=== PATIENT | male | born 1995 | race Caucasian/White ===

== ENCOUNTER 2020-02-19 16:19 | Inpatient (IN) | payer MEDICAID ==
[~2020-02-19] VITALS: Ht 198.1 cm; Wt 120.3 kg
[2020-02-19 17:45] VITALS: BP 129/76
[2020-02-19] MEDS ORDERED: QUEtiapine FUMARATE 100 MG TABLET PO PRN (18:15)
[2020-02-19] MEDS: LORazepam 2 MG TABLET PO PRN (19:10)
[2020-02-19 20:00] VITALS: BP 139/84
[2020-02-19] MEDS: QUEtiapine FUMARATE 200 MG TABLET PO SCH (20:22)
[2020-02-19] MEDS: MIRTAZAPINE 15 MG TABLET PO SCH (20:22)
[2020-02-20] VITALS: BP 132/80
[2020-02-20 02:50] VITALS: BP 142/88
[2020-02-20] MEDS: LORazepam 2 MG TABLET PO PRN ×2 (02:58→08:28)
[2020-02-20 08:25] LABS: BASOPHILS % (AUTO) 0.8 % (0.0-2.0); EOSINOPHILS % (AUTO) 2.3 % (1.0-6.0); HEMATOCRIT 44.7 % (41-53); LYMPHOCYTES # (AUTO) 2.2 K/uL (1.0-4.8); LYMPHOCYTES % (AUTO) 28.5 % (22.0-44.0); MEAN CORPUSCULAR HEMOGLOBIN 28.4 pg (26.0-34.0); MEAN CORPUSCULAR HGB CONC 33.5 G/dL (31.0-37.0); MEAN CORPUSCULAR VOLUME 85 fL (80-100); MONOCYTES # (AUTO) 0.6 K/uL (0.1-1.0); MONOCYTES % (AUTO) 8.2 % (2.0-9.0); NEUTROPHILS # (AUTO) 4.6 K/uL (1.8-7.7); NEUTROPHILS % (AUTO) 60.2 % (40.0-70.0); PLATELET COUNT (AUTO) 197 K/uL (150-450); RED BLOOD CELL COUNT(AUTO) 5.26 MIL/uL (4.50-5.90); RED CELL DISTRIBUTION WIDTH 13.3 % (11.5-14.5)
[2020-02-20] MEDS: ESCITALOPRAM OXALATE 10 MG TABLET PO SCH (08:28)
[2020-02-20 08:44] LABS: HEMOGLOBIN A1C 5.2 % (3.8-5.6)
[2020-02-20 09:00] LABS: ALANINE AMINOTRANSFERASE 21 U/L (12-78); ALBUMIN 4.2 g/dL (3.4-5.0); ALKALINE PHOSPHATASE 79 U/L (46-116); ANION GAP 7 mmol/L (8-16); ASPARTATE AMINOTRANSFERASE 15 U/L (15-37); CALCIUM, TOTAL 9.3 mg/dL (8.8-10.5); CARBON DIOXIDE 30 mmol/L (22-29); CHLORIDE 105 mmol/L (98-107); CHOL/HDL RATIO 2.5 (4.2-7.3); CHOLESTEROL 124 mg/dL (131-200); CREATININE 1.15 mg/dL (0.60-1.30); FREE T4 (FREE THYROXINE) 1.04 ng/dL (0.76-1.46); GLOMERULAR FILTR. RATE CALC > 60 mL/min (>60); GLUCOSE,RANDOM 89 mg/dL (70-110); HDL CHOLESTEROL 50 mg/dL (40-60); LDL CHOL (CALC.) 63 mg/dL (0-130); SODIUM SERUM 142 mmol/L (136-145); THYROID STIMULATING HORMONE 3.18 uIU/mL (0.36-3.74); TOTAL PROTEIN, SERUM 7.4 g/dL (6.4-8.2); TRIGLYCERIDES 53 mg/dL (15-150); UREA NITROGEN, BLOOD 17 mg/dL (7-18)
[2020-02-20 09:07] LABS: AMPHET/METH SCREEN,URINE NEGATIVE (NEGATIVE); BARBITURATE SCREEN, URINE NEGATIVE (NEGATIVE); BENZODIAZEPINES SCREEN,URINE NEGATIVE (NEGATIVE); CANNABINOID SCREEN,URINE NEGATIVE (NEGATIVE); COCAINE SCREEN,URINE NEGATIVE (NEGATIVE); METHADONE SCREEN, URINE NEGATIVE (NEGATIVE); OPIATE SCREEN,URINE NEGATIVE (NEGATIVE)
[2020-02-20 09:18] LABS: APPEARANCE,URINE CLEAR (CLEAR); BILIRUBIN,URINE NEGATIVE (NEGATIVE); GLUCOSE, URINE (UA) NEGATIVE (NEGATIVE); KETONES,URINE NEGATIVE (NEGATIVE); LEUKOCYTE ESTERASE ,URINE NEGATIVE (NEGATIVE); NITRATE,URINE NEGATIVE (NEGATIVE); OCCULT BLOOD,URINE NEGATIVE (NEGATIVE); PROTEIN,URINE NEGATIVE (NEGATIVE); UROBILINOGEN,URINE 0.2 mg/dL (<=1.0)
[2020-02-20 09:39] LABS: PHENCYCLIDINE SCREEN,URINE NEGATIVE (NEGATIVE)
[2020-02-20 09:48] VITALS: BP 129/83
[2020-02-20] MEDS ORDERED: PETROLATUM,WHITE 28 GM JELLY TP PRN (10:45)
[2020-02-20] MEDS ORDERED: ACETAMINOPHEN 325 MG TABLET PO PRN (10:45)
[2020-02-20] MEDS ORDERED: MAG HYDROX/AL HYDROX/SIMETH ES 30 ML SUSPENSION UDCUP PO PRN (10:45)
[2020-02-20] MEDS ORDERED: ALBUTEROL SULFATE HFA 90 MCG/PUFF 8 GM INHALER IH PRN (10:45)
[2020-02-20] MEDS ORDERED: IBUPROFEN 400 MG TABLET PO PRN (10:45)
[2020-02-20] MEDS ORDERED: ONDANSETRON HCL 4 MG TABLET PO PRN (10:45)
[2020-02-20] MEDS ORDERED: GuaiFENesin/D-METHORPHAN [SUGAR-FREE] 200-20MG/10 ML SYRUP UDCUP PO PRN (10:45)
[2020-02-20] MEDS ORDERED: CloNIDine HCL 0.1 MG TABLET PO PRN (10:45)
[2020-02-20] MEDS ORDERED: LOPERAMIDE HCL 2 MG CAPSULE PO PRN (10:45)
[2020-02-20] MEDS ORDERED: MAGNESIUM HYDROXIDE SUSPENSION 30 ML UDCUP PO PRN (10:45)
[2020-02-20] MEDS ORDERED: DOCUSATE SODIUM 100 MG CAPSULE PO PRN (10:45)
[2020-02-20] MEDS ORDERED: NICOTINE 14 MG/24 HOUR PATCH TD PRN (10:45)
[2020-02-20 16:08] VITALS: BP 133/86
[2020-02-20] MEDS: QUEtiapine FUMARATE 200 MG TABLET PO SCH (20:11)
[2020-02-20] MEDS: MIRTAZAPINE 15 MG TABLET PO SCH (20:11)
[2020-02-20] MEDS: TraZODone HCL 50 MG TABLET PO SCH (20:11)
[2020-02-21] MEDS: LORazepam 2 MG TABLET PO PRN (01:08)
[2020-02-21 01:39] VITALS: BP 116/79
[2020-02-21] MEDS: ESCITALOPRAM OXALATE 10 MG TABLET PO SCH (08:48)
[2020-02-21 09:25] VITALS: BP 119/71
[2020-02-21 16:15] VITALS: BP 122/79
[2020-02-21] MEDS: MIRTAZAPINE 15 MG TABLET PO SCH (20:37)
[2020-02-21] MEDS: QUEtiapine FUMARATE 200 MG TABLET PO SCH (20:37)
[2020-02-21] MEDS: TraZODone HCL 50 MG TABLET PO SCH (20:37)
[2020-02-22 01:09] VITALS: BP 109/62
[2020-02-22] MEDS: LORazepam 2 MG TABLET PO PRN ×4 (01:17→16:58)
[2020-02-22 06:00] VITALS: BP 131/82
[2020-02-22 08:39] VITALS: BP 134/61
[2020-02-22] MEDS: ESCITALOPRAM OXALATE 10 MG TABLET PO SCH (08:47)
[2020-02-22 12:00] VITALS: BP 129/69
[2020-02-22 16:12] VITALS: BP 118/72
[2020-02-22] MEDS: TraZODone HCL 50 MG TABLET PO SCH (20:23)
[2020-02-22] MEDS: MIRTAZAPINE 15 MG TABLET PO SCH (20:23)
[2020-02-22] MEDS: QUEtiapine FUMARATE 200 MG TABLET PO SCH (20:23)
[2020-02-23 06:24] VITALS: BP 120/70
[2020-02-23] MEDS: LORazepam 2 MG TABLET PO PRN ×2 (07:12→17:41)
[2020-02-23 08:32] VITALS: BP 119/71
[2020-02-23] MEDS: ESCITALOPRAM OXALATE 10 MG TABLET PO SCH (08:37)
[2020-02-23 16:20] VITALS: BP 117/69
[2020-02-23] MEDS: MIRTAZAPINE 15 MG TABLET PO SCH (20:34)
[2020-02-23] MEDS: TraZODone HCL 50 MG TABLET PO SCH (20:34)
[2020-02-23] MEDS: QUEtiapine FUMARATE 200 MG TABLET PO SCH (20:34)
[2020-02-24 00:56] VITALS: BP 118/62
[2020-02-24 08:11] VITALS: BP 116/63
[2020-02-24] MEDS: ESCITALOPRAM OXALATE 10 MG TABLET PO SCH (08:36)
[2020-02-24] MEDS: LORazepam 2 MG TABLET PO PRN ×2 (13:56→19:04)
[2020-02-24 16:12] VITALS: BP 133/74
[2020-02-24] MEDS: QUEtiapine FUMARATE 200 MG TABLET PO SCH (20:36)
[2020-02-24] MEDS: TraZODone HCL 50 MG TABLET PO SCH (20:36)
[2020-02-24] MEDS: MIRTAZAPINE 15 MG TABLET PO SCH (20:37)
[2020-02-25 02:41] VITALS: BP 113/61
[2020-02-25 08:19] VITALS: BP 120/84
[2020-02-25] MEDS: ESCITALOPRAM OXALATE 10 MG TABLET PO SCH (08:48)
[2020-02-25] MEDS: LORazepam 2 MG TABLET PO PRN (10:20)
[2020-02-25 16:30] VITALS: BP 141/67
[2020-02-25] MEDS: TraZODone HCL 50 MG TABLET PO SCH (20:37)
[2020-02-25] MEDS: MIRTAZAPINE 15 MG TABLET PO SCH (20:37)
[2020-02-25] MEDS: QUEtiapine FUMARATE 200 MG TABLET PO SCH (20:37)
[2020-02-26 06:13] VITALS: BP 118/74
[2020-02-26 08:15] VITALS: BP 112/72
[2020-02-26] MEDS: ESCITALOPRAM OXALATE 10 MG TABLET PO SCH (08:19)
[2020-02-26] MEDS: LORazepam 2 MG TABLET PO PRN ×2 (11:56→17:40)
[2020-02-26 16:05] VITALS: BP 121/75
[2020-02-26] MEDS: TraZODone HCL 50 MG TABLET PO SCH (20:06)
[2020-02-26] MEDS: QUEtiapine FUMARATE 200 MG TABLET PO SCH (20:06)
[2020-02-26] MEDS: MIRTAZAPINE 30 MG TABLET PO SCH (20:06)
[2020-02-27 01:26] VITALS: BP 120/74
[2020-02-27] MEDS: LORazepam 2 MG TABLET PO PRN ×2 (05:16→21:08)
[2020-02-27] MEDS: ESCITALOPRAM OXALATE 10 MG TABLET PO SCH (09:31)
[2020-02-27 10:00] VITALS: BP 103/59
[2020-02-27] MEDS ORDERED: ESCITALOPRAM OXALATE 10 MG TABLET PO ONE (13:00)
[2020-02-27 16:54] VITALS: BP 130/72
[2020-02-27] MEDS: TraZODone HCL 50 MG TABLET PO SCH (20:02)
[2020-02-27] MEDS: MIRTAZAPINE 30 MG TABLET PO SCH (20:02)
[2020-02-27] MEDS: QUEtiapine FUMARATE 200 MG TABLET PO SCH (20:02)
[2020-02-28 03:06] VITALS: BP 122/68
[2020-02-28] MEDS: LORazepam 2 MG TABLET PO PRN ×3 (04:36→19:37)
[2020-02-28] MEDS: ESCITALOPRAM OXALATE 10 MG TABLET PO SCH (08:01)
[2020-02-28 09:10] VITALS: BP 103/66
[2020-02-28 09:32] VITALS: BP 114/60
[2020-02-28 16:23] VITALS: BP 126/69
[2020-02-28] MEDS: TraZODone HCL 50 MG TABLET PO SCH (20:13)
[2020-02-28] MEDS: QUEtiapine FUMARATE 200 MG TABLET PO SCH (20:13)
[2020-02-28] MEDS: MIRTAZAPINE 30 MG TABLET PO SCH (20:13)
[2020-02-29 00:14] VITALS: BP 130/72
[2020-02-29] MEDS: LORazepam 2 MG TABLET PO PRN ×2 (05:37→10:47)
[2020-02-29 08:08] VITALS: BP 120/79
[2020-02-29] MEDS: ESCITALOPRAM OXALATE 10 MG TABLET PO SCH (08:20)
[2020-02-29] MEDS ORDERED: TRAZ-252 PO (12:54)
[2020-02-29] MEDS ORDERED: MIRT30 PO (12:55)
[2020-02-29] MEDS ORDERED: QUET200T PO (12:55)
[2020-02-29] MEDS ORDERED: ESCI-8 PO (12:55)
== END 2020-02-29 13:15 | disposition home or self-care (01) | DRG 751 ==
LOC: B2S 18:35
PROVIDERS: ADMIT Psychiatry & Neurology Child & Adolescent Psychiatry; ATTEND Psychiatry & Neurology Psychiatry
DX: F32.2 Major depressive disorder, single episode, severe without psychotic features (principal); G20 Parkinson's disease; R45.851 Suicidal ideations; F41.1 Generalized anxiety disorder; G47.00 Insomnia, unspecified; Z79.899 Other long term (current) drug therapy; F12.90 Cannabis use, unspecified, uncomplicated; F90.9 Attention-deficit hyperactivity disorder, unspecified type; Z81.8 Family history of other mental and behavioral disorders; I45.10 Unspecified right bundle-branch block; F02.80 Dementia in other diseases classified elsewhere, unspecified severity, without behavioral disturbance, psychotic disturbance, mood disturbance, and anxiety; G62.9 Polyneuropathy, unspecified; D49.6 Neoplasm of unspecified behavior of brain; R03.0 Elevated blood-pressure reading, without diagnosis of hypertension; G80.9 Cerebral palsy, unspecified
CPT/HCPCS: 80307; 83036; 84436; 84439; 84443; 86592; 87081

== ENCOUNTER 2020-03-04 09:06 | Inpatient (IN) | payer MEDICAID ==
[~2020-03-04] VITALS: Ht 198.1 cm; Wt 121.3 kg
[~2020-03-04 09:06] MED LIST: ESCI-8 PO; MIRT30 PO; QUET200T PO; TRAZ-252 PO
[2020-03-04 10:09] VITALS: BP 118/80
[2020-03-04] MEDS: BusPIRone HCL 10 MG TABLET PO SCH (16:38)
[2020-03-04 17:10] VITALS: BP 138/81
[2020-03-04] MEDS: TraZODone HCL 50 MG TABLET PO SCH (20:20)
[2020-03-04] MEDS: MIRTAZAPINE 30 MG TABLET PO SCH (20:20)
[2020-03-05] MEDS: ZOLPIDEM TARTRATE 10 MG TABLET PO PRN (00:34)
[2020-03-05 00:46] VITALS: BP 129/80
[2020-03-05 05:34] VITALS: BP 138/86
[2020-03-05] MEDS: LORazepam 2 MG TABLET PO PRN ×3 (05:35→15:29)
[2020-03-05 08:09] LABS: BASOPHILS % (AUTO) 0.6 % (0.0-2.0); EOSINOPHILS % (AUTO) 1.7 % (1.0-6.0); HEMATOCRIT 43.1 % (41-53); HEMOGLOBIN 14.6 g/dL (13.5-17.5); LYMPHOCYTES # (AUTO) 1.3 K/uL (1.0-4.8); LYMPHOCYTES % (AUTO) 21.4 % (22.0-44.0); MEAN CORPUSCULAR HEMOGLOBIN 28.3 pg (26.0-34.0); MEAN CORPUSCULAR HGB CONC 33.8 G/dL (31.0-37.0); MEAN CORPUSCULAR VOLUME 84 fL (80-100); MONOCYTES # (AUTO) 0.6 K/uL (0.1-1.0); MONOCYTES % (AUTO) 9.2 % (2.0-9.0); NEUTROPHILS % (AUTO) 67.1 % (40.0-70.0); PLATELET COUNT (AUTO) 180 K/uL (150-450); RED BLOOD CELL COUNT(AUTO) 5.15 MIL/uL (4.50-5.90); RED CELL DISTRIBUTION WIDTH 13.1 % (11.5-14.5)
[2020-03-05] MEDS: ESCITALOPRAM OXALATE 10 MG TABLET PO SCH (08:10)
[2020-03-05] MEDS: BusPIRone HCL 10 MG TABLET PO SCH ×2 (08:10→17:05)
[2020-03-05] MEDS: BACITRACIN 28.4 GM OINTMENT TP SCH ×2 (08:10→17:05)
[2020-03-05] MEDS ORDERED: DOCUSATE SODIUM 100 MG CAPSULE PO PRN (08:15)
[2020-03-05] MEDS ORDERED: NICOTINE 14 MG/24 HOUR PATCH TD PRN (08:15)
[2020-03-05] MEDS ORDERED: PETROLATUM,WHITE 28 GM JELLY TP PRN (08:15)
[2020-03-05] MEDS ORDERED: CloNIDine HCL 0.1 MG TABLET PO PRN (08:15)
[2020-03-05] MEDS ORDERED: ONDANSETRON HCL 4 MG TABLET PO PRN (08:15)
[2020-03-05] MEDS ORDERED: LOPERAMIDE HCL 2 MG CAPSULE PO PRN (08:15)
[2020-03-05] MEDS ORDERED: GuaiFENesin/D-METHORPHAN [SUGAR-FREE] 200-20MG/10 ML SYRUP UDCUP PO PRN (08:15)
[2020-03-05] MEDS ORDERED: MAG HYDROX/AL HYDROX/SIMETH ES 30 ML SUSPENSION UDCUP PO PRN (08:15)
[2020-03-05] MEDS ORDERED: MAGNESIUM HYDROXIDE SUSPENSION 30 ML UDCUP PO PRN (08:15)
[2020-03-05] MEDS ORDERED: ALBUTEROL SULFATE HFA 90 MCG/PUFF 8 GM INHALER IH PRN (08:15)
[2020-03-05 08:43] LABS: ALANINE AMINOTRANSFERASE 54 U/L (12-78); ALKALINE PHOSPHATASE 62 U/L (46-116); ANION GAP 12 mmol/L (8-16); ASPARTATE AMINOTRANSFERASE 160 U/L (15-37); BILIRUBIN,TOTAL 0.9 mg/dL (0.1-1.0); CALCIUM, TOTAL 8.8 mg/dL (8.8-10.5); CARBON DIOXIDE 24 mmol/L (22-29); CHLORIDE 105 mmol/L (98-107); CHOL/HDL RATIO 2.2 (4.2-7.3); CHOLESTEROL 119 mg/dL (131-200); CREATININE 1.05 mg/dL (0.60-1.30); GLOMERULAR FILTR. RATE CALC > 60 mL/min (>60); GLUCOSE,RANDOM 93 mg/dL (70-110); HDL CHOLESTEROL 53 mg/dL (40-60); LDL CHOL (CALC.) 58 mg/dL (0-130); SODIUM SERUM 141 mmol/L (136-145); TOTAL PROTEIN, SERUM 7.2 g/dL (6.4-8.2); TRIGLYCERIDES 39 mg/dL (15-150); UREA NITROGEN, BLOOD 14 mg/dL (7-18)
[2020-03-05 09:35] VITALS: BP 126/80
[2020-03-05 16:00] VITALS: BP 127/63
[2020-03-05] MEDS: ACETAMINOPHEN 325 MG TABLET PO PRN (17:35)
[2020-03-05] MEDS: MIRTAZAPINE 30 MG TABLET PO SCH (21:18)
[2020-03-05] MEDS: TraZODone HCL 50 MG TABLET PO SCH (21:18)
[2020-03-06] VITALS: BP 140/84
[2020-03-06] MEDS: LORazepam 2 MG TABLET PO PRN ×4 (00:16→20:03)
[2020-03-06] MEDS: ESCITALOPRAM OXALATE 10 MG TABLET PO SCH (08:08)
[2020-03-06] MEDS: ACETAMINOPHEN 325 MG TABLET PO PRN (08:08)
[2020-03-06] MEDS: BusPIRone HCL 10 MG TABLET PO SCH ×2 (08:08→17:12)
[2020-03-06] MEDS: BACITRACIN 28.4 GM OINTMENT TP SCH ×2 (08:08→17:13)
[2020-03-06 08:39] VITALS: BP 128/78
[2020-03-06] MEDS: IBUPROFEN 400 MG TABLET PO PRN (12:52)
[2020-03-06 16:29] VITALS: BP 112/64
[2020-03-06] MEDS: TraZODone HCL 50 MG TABLET PO SCH (20:37)
[2020-03-06] MEDS: MIRTAZAPINE 30 MG TABLET PO SCH (20:37)
[2020-03-07 02:27] VITALS: BP 124/68
[2020-03-07] MEDS: LORazepam 2 MG TABLET PO PRN ×4 (02:31→17:48)
[2020-03-07 05:48] VITALS: BP 138/79
[2020-03-07] MEDS: IBUPROFEN 400 MG TABLET PO PRN (06:08)
[2020-03-07] MEDS: BACITRACIN 28.4 GM OINTMENT TP SCH ×2 (08:03→16:22)
[2020-03-07] MEDS: BusPIRone HCL 10 MG TABLET PO SCH ×2 (08:03→16:17)
[2020-03-07] MEDS: ESCITALOPRAM OXALATE 20 MG TABLET PO SCH (08:03)
[2020-03-07 08:12] VITALS: BP 118/60
[2020-03-07 16:07] VITALS: BP 111/66
[2020-03-07] MEDS: MIRTAZAPINE 30 MG TABLET PO SCH (20:53)
[2020-03-07] MEDS: TraZODone HCL 50 MG TABLET PO SCH (20:54)
[2020-03-07] MEDS: ZOLPIDEM TARTRATE 10 MG TABLET PO PRN (21:21)
[2020-03-08 04:00] VITALS: BP 111/72
[2020-03-08] MEDS: LORazepam 2 MG TABLET PO PRN ×3 (04:04→12:25)
[2020-03-08] MEDS: BACITRACIN 28.4 GM OINTMENT TP SCH ×2 (08:03→16:27)
[2020-03-08] MEDS: BusPIRone HCL 10 MG TABLET PO SCH ×2 (08:03→16:25)
[2020-03-08] MEDS: ESCITALOPRAM OXALATE 20 MG TABLET PO SCH (08:03)
[2020-03-08 08:17] VITALS: BP 133/75
[2020-03-08 16:05] VITALS: BP 122/64
[2020-03-08] MEDS: LORazepam 1 MG TABLET PO PRN (17:38)
[2020-03-08] MEDS: TraZODone HCL 100 MG TABLET PO SCH (20:08)
[2020-03-08] MEDS: MIRTAZAPINE 30 MG TABLET PO SCH (20:08)
[2020-03-09 02:03] VITALS: BP 129/74
[2020-03-09] MEDS: LORazepam 1 MG TABLET PO PRN ×3 (02:12→19:48)
[2020-03-09 07:56] VITALS: BP 124/75
[2020-03-09] MEDS: BusPIRone HCL 10 MG TABLET PO SCH ×2 (08:21→16:47)
[2020-03-09] MEDS: ESCITALOPRAM OXALATE 20 MG TABLET PO SCH (08:21)
[2020-03-09] MEDS: BACITRACIN 28.4 GM OINTMENT TP SCH ×2 (08:21→16:48)
[2020-03-09 12:33] VITALS: BP 124/75
[2020-03-09 16:04] VITALS: BP 114/67
[2020-03-09] MEDS: TraZODone HCL 100 MG TABLET PO SCH (20:21)
[2020-03-09] MEDS: MIRTAZAPINE 30 MG TABLET PO SCH (20:21)
[2020-03-10 00:21] VITALS: BP 112/72
[2020-03-10] MEDS: ZOLPIDEM TARTRATE 10 MG TABLET PO PRN (02:19)
[2020-03-10] MEDS: LORazepam 1 MG TABLET PO PRN (05:28)
[2020-03-10] MEDS: BusPIRone HCL 10 MG TABLET PO SCH ×2 (08:01→17:52)
[2020-03-10] MEDS: ESCITALOPRAM OXALATE 20 MG TABLET PO SCH (08:01)
[2020-03-10] MEDS: BACITRACIN 28.4 GM OINTMENT TP SCH ×2 (08:03→20:38)
[2020-03-10 09:00] VITALS: BP 114/70
[2020-03-10] MEDS: IBUPROFEN 400 MG TABLET PO PRN (12:45)
[2020-03-10 16:24] VITALS: BP 134/75
[2020-03-10] MEDS: LORazepam 0.5 MG TABLET PO PRN (18:43)
[2020-03-10] MEDS: ACETAMINOPHEN 325 MG TABLET PO PRN ×2 (19:20→21:43)
[2020-03-10] MEDS: TraZODone HCL 100 MG TABLET PO SCH (20:33)
[2020-03-10] MEDS: MIRTAZAPINE 30 MG TABLET PO SCH (20:58)
[2020-03-11 03:07] VITALS: BP 111/73
[2020-03-11] MEDS: LORazepam 0.5 MG TABLET PO PRN (03:09)
[2020-03-11 08:00] VITALS: BP 111/71
[2020-03-11] MEDS: BusPIRone HCL 10 MG TABLET PO SCH ×2 (08:00→16:03)
[2020-03-11] MEDS: BACITRACIN 28.4 GM OINTMENT TP SCH ×2 (08:00→16:04)
[2020-03-11] MEDS: ESCITALOPRAM OXALATE 20 MG TABLET PO SCH (08:00)
[2020-03-11] MEDS: IBUPROFEN 400 MG TABLET PO PRN ×2 (08:00→16:04)
[2020-03-11 08:37] VITALS: BP 111/71
[2020-03-11 16:04] VITALS: BP 134/68
[2020-03-11 16:09] VITALS: BP 134/68
[2020-03-11] MEDS: TraZODone HCL 100 MG TABLET PO SCH (20:02)
[2020-03-12] VITALS: BP_SYST 118; BP_SYST 137; BP_DIAS 67; BP_DIAS 87
[2020-03-12] MEDS: VENLAFAXINE HCL 50 MG TABLET PO SCH (08:02)
[2020-03-12] MEDS: BusPIRone HCL 10 MG TABLET PO SCH ×2 (08:03→16:43)
[2020-03-12] MEDS: ESCITALOPRAM OXALATE 20 MG TABLET PO SCH (08:03)
[2020-03-12] MEDS: BACITRACIN 28.4 GM OINTMENT TP SCH ×2 (08:13→17:45)
[2020-03-12 09:33] VITALS: BP 116/62
[2020-03-12 16:00] VITALS: BP 125/80
[2020-03-12] MEDS: TraZODone HCL 100 MG TABLET PO SCH (20:04)
[2020-03-12] MEDS: ZOLPIDEM TARTRATE 10 MG TABLET PO PRN ×2 (20:59)
[2020-03-13 00:50] VITALS: BP 119/83
[2020-03-13] MEDS: VENLAFAXINE HCL 50 MG TABLET PO SCH (08:06)
[2020-03-13] MEDS: BusPIRone HCL 10 MG TABLET PO SCH (08:06)
[2020-03-13] MEDS: ESCITALOPRAM OXALATE 20 MG TABLET PO SCH (08:06)
[2020-03-13] MEDS: BACITRACIN 28.4 GM OINTMENT TP SCH (08:19)
[2020-03-13 10:54] VITALS: BP 124/79
[2020-03-13] MEDS ORDERED: ESCI20TA87 PO (13:17)
[2020-03-13] MEDS ORDERED: TRAZ150 PO (13:17)
[2020-03-13] MEDS ORDERED: BUSP10TA23 PO (13:17)
[2020-03-13] MEDS ORDERED: VENL50TA44 PO (13:17)
== END 2020-03-13 14:00 | disposition home or self-care (01) | DRG 885 ==
LOC: B2S 10:32
PROVIDERS: ADMIT Psychiatry & Neurology Psychiatry; ATTEND Psychiatry & Neurology Psychiatry
DX: F32.3 Major depressive disorder, single episode, severe with psychotic features (principal); R45.851 Suicidal ideations; F41.1 Generalized anxiety disorder; F95.2 Tourette's disorder; Z86.61 Personal history of infections of the central nervous system; G80.9 Cerebral palsy, unspecified; R10.13 Epigastric pain
CPT/HCPCS: 87081; Q0162